=== PATIENT | female | born 1995 | race American Indian/Alaskan Native ===

== ENCOUNTER 2017-06-06 12:39 | Emergency (ER) | payer SELFPAY ==
[2017-06-06 13:17] VITALS: BP 114/70
--- NOTE | 2017-06-06 13:25 | Emergency Department Report ---
Chief Complaint: Urogenital-Female Stated Complaint: PREG,ABDOMINAL PAIN - HPI History of Present Illness: This is a 21-year-old female that presents with pelvic cramping times one week. Patient stated she was just seen at *first and the symptoms but was not able to rule out tubal due to gestation age. Patient describes pain as cramping. Denies any vaginal bleeding, abdominal pain, nausea, vomiting, chest pain or shortness of breath. She also states she wants a STD check due to vaginal discharge described as yellow and has a tingling sensation upon urination. Patient denies any other symptoms. - Exam Vital Signs: Vital Signs 06/06/17 13:11 Temperature 99.9 F H Pulse Rate 95 H Respiratory 18 Rate Blood Pressure 114/70 O2 Sat by Pulse 98 Oximetry Physical Exam: GENERAL: The patient is a well-developed, well-nourished female in no apparent distress. Patient is alert and acting appropriately for age. Alert and oriented 3, no apparent distress, normal gait, atraumatic. ABDOMEN: Soft, nontender, and nondistended. Positive bowel sounds. No hepatosplenomegaly was noted. No guarding or rebound tenderness, negative epigastric bruit. Negative psoas sign, negative valladares sign, negative McBurneys sign. Negative CVA tenderness MSE screening note: Focused history and physical exam performed. Due to findings the following was ordered: 1- This initial assessment/diagnostic orders/clinical plan/ treatment(s) is/are subject to change based on pt's health status, clinical progression and re- assessment by fellow clinical providers in the ED. Further treatment and workup at subsequent clinical provers discretion. Patient/guardians urged not to elope from ED as their condition may be serious if not clinically assessed and managed. 2-CBC, BMP, type and screen, UA, wet prep, gonorrhea/chlamydia, quantitative serum 3-ultrasound/transvaginal ED Disposition for MSE Condition: Stable
[2017-06-06 13:48] LABS: Hematocrit 36.1 % (30.3-42.9); Hemoglobin 11.7 gm/dl (10.1-14.3); Mean Corpuscular HGB Conc 33 % (30-34); Mean Corpuscular Hemoglobin 29 pg (28-32); Mean Corpuscular Volume 89 fl (79-97); Platelet Count 287 K/mm3 (140-440); Red Blood Count 4.06 M/mm3 (3.65-5.03); Red Cell Distribution Width 14.7 % (13.2-15.2); White Blood Count 5.7 K/mm3 (4.5-11.0)
[2017-06-06 14:01] LABS: Anion Gap 15 mmol/L; BUN/Creatinine Ratio 23; Blood Urea Nitrogen 18 mg/dL (7-17); Calcium 8.7 mg/dL (8.4-10.2); Carbon Dioxide 25 mmol/L (22-30); Chloride 99.9 mmol/L (98-107); Glucose 74 mg/dL (65-100); Potassium 3.7 mmol/L (3.6-5.0); Sodium 136 mmol/L (137-145)
[2017-06-06 15:33] LABS: Bilirubin,Urine NEG (Negative); Blood,Urine NEG (Negative); Ketones,Urine NEG (Negative); Leukocyte Esterase,Urine NEG (Negative); Nitrite,Urine NEG (Negative); Protein,Urine <15 mg/dL mg/dL (Negative); Urobilinogen,Urine < 2.0 mg/dL (<2.0)
[2017-06-06 15:39] LABS: WBC,Urine < 1.0 /HPF (0.0-6.0)
--- NOTE | 2017-06-06 17:10 | Ultrasound Report ---
FINAL REPORT PROCEDURE: US OB LESS THAN 14 WEEKS TECHNIQUE: Real-time transabdominal and transvaginal sonography of the uterus, placenta, amniotic fluid, adnexa, and fetus was performed with image documentation. Measurements were obtained to determine age/size. M-mode Doppler was used to document heartbeat. CPT 42358 and 18631 HISTORY: Rule out tubal. Pelvic pain. COMPARISON: No prior studies are available for comparison. FINDINGS: CRL: No pole identified. Yolk Sac: Normal. Embryonic Cardiac Activity: No cardiac activity detected. Gestational Sac: Mean sac diameter 10.6 mm, 5 weeks 6 days. Amniotic fluid: Normal. Cervix: Normal. Uterus: 8.9 x 4.3 x 6.2 cm. Right Ovary: 3.9 x 1.4 x 3.6 cm. Normal flow. Left Ovary: 3.7 x 2.4 x 2.4 cm. Normal flow. Estimated delivery date: 01/31/2018. Uterus and adnexa: Normal. IMPRESSION: Probable small intrauterine gestational sac with yolk sac. No pole or cardiac activity detected at this time. By measurements this corresponds to 5 weeks 6 days with EDC of 01/31/2018. Consider this could represent very early intrauterine without pole or cardiac activity detected. Ovary/adnexa unremarkable, ectopic felt to be very unlikely. Recommend clinical correlation, correlation with beta HCG, and short-term followup pelvic ultrasound.
--- NOTE | 2017-06-06 17:13 | Ultrasound Report ---
FINAL REPORT PROCEDURE: US OB LESS THAN 14 WEEKS TECHNIQUE: Real-time transabdominal and transvaginal sonography of the uterus, placenta, amniotic fluid, adnexa, and fetus was performed with image documentation. Measurements were obtained to determine age/size. M-mode Doppler was used to document heartbeat. CPT 79929 and 79090 HISTORY: Rule out tubal. Pelvic pain. COMPARISON: No prior studies are available for comparison. FINDINGS: CRL: No pole identified. Yolk Sac: Normal. Embryonic Cardiac Activity: No cardiac activity detected. Gestational Sac: Mean sac diameter 10.6 mm, 5 weeks 6 days. Amniotic fluid: Normal. Cervix: Normal. Uterus: 8.9 x 4.3 x 6.2 cm. Right Ovary: 3.9 x 1.4 x 3.6 cm. Normal flow. Left Ovary: 3.7 x 2.4 x 2.4 cm. Normal flow. Estimated delivery date: 01/31/2018. Uterus and adnexa: Normal. IMPRESSION: Probable small intrauterine gestational sac with yolk sac. No pole or cardiac activity detected at this time. By measurements this corresponds to 5 weeks 6 days with EDC of 01/31/2018. Consider this could represent very early intrauterine without pole or cardiac activity detected. Ovary/adnexa unremarkable, ectopic felt to be very unlikely. Recommend clinical correlation, correlation with beta HCG, and short-term followup pelvic ultrasound.
== END 2017-06-06 17:50 | disposition left against medical advice (07) ==
LOC: ED 12:39
DX: R10.9 Unspecified abdominal pain (principal); Z53.21 Procedure and treatment not carried out due to patient leaving prior to being seen by health care provider
CPT/HCPCS: 36415; 76801; 76817; 80048; 81001; 84702; 85027; 86850; 86900; 86901

== ENCOUNTER 2017-07-09 09:31 | Emergency (ER) | payer MEDICAID, OTHER ==
[2017-07-09 09:42] VITALS: BP 118/77
[2017-07-09 10:23] LABS: Bilirubin,Urine NEG (Negative); Blood,Urine NEG (Negative); Ketones,Urine NEG (Negative); Leukocyte Esterase,Urine SM (Negative); Mucus,Urine FEW /HPF; Nitrite,Urine NEG (Negative); Protein,Urine <15 mg/dL mg/dL (Negative); Urobilinogen,Urine < 2.0 mg/dL (<2.0)
[2017-07-09] MEDS ORDERED: ROCEPHIN IM ONE (11:55)
[2017-07-09] MEDS ORDERED: ZITHROMAX PO ONE (11:55)
[2017-07-09] MEDS ORDERED: XYLOCAINE 1% MPF 5 mL INFILTRATI ONE (11:55)
--- NOTE | 2017-07-09 12:03 | Emergency Department Report ---
ED Female HPI - General Chief complaint: Urogenital-Female Stated complaint: VAG DISCHARGE AND IRRITATION Time Seen by Provider: 07/09/17 10:51 Source: patient Mode of arrival: Ambulatory Limitations: No Limitations - History of Present Illness Initial comments: This is a 22-year-old female nontoxic, well nourished in appearance, no acute signs of distress presents to the ED with c/o of vaginal discharge times one month. Patient stated she is currently 10 weeks with no vaginal bleeding, vaginal pain. Patient states she is concerned about STD because her partner called her with a positive gonorrhea. We discussed that he'll discharge as yellow color with foul order. Patient denies any bowel pain, pelvic pain, vaginal bleeding, chest pain, shortness of breath, dysuria, polyuria, hematuria, back pain. Patient denies any allergies or past medical history. MD Complaint: vaginal discharge -: month(s) (1) Severity: mild Consistency: constant Improves with: none Worsens with: none Are you Now?: Yes Last Menstrual Period: 03/24/17 EDC: 12/29/17 Associated Symptoms: vaginal discharge. denies: vaginal bleeding, abdominal pain, nausea/vomiting, fever/chills, headaches, loss of appetite, dysuria, hematuria, rash, seizure, shortness of breath, syncope, weakness - Related Data Previous Rx's Medication Instructions Recorded Last Taken Type metroNIDAZOLE [Flagyl] 500 mg PO Q12HR #14 tab 07/09/17 Unknown Rx Allergies Allergy/AdvReac Type Severity Reaction Status Date / Time No Known Allergies Allergy Unverified 06/06/17 13:17 ED Review of Systems ROS: Stated complaint: VAG DISCHARGE AND IRRITATION Other details as noted in HPI Constitutional: denies: chills, fever Eyes: denies: eye pain, eye discharge, vision change ENT: denies: ear pain, throat pain Respiratory: denies: cough, shortness of breath, wheezing Cardiovascular: denies: chest pain, palpitations Endocrine: no symptoms reported Gastrointestinal: denies: abdominal pain, nausea, diarrhea Genitourinary: discharge. denies: urgency, dysuria Musculoskeletal: denies: back pain, joint swelling, arthralgia Skin: denies: rash, lesions Neurological: denies: headache, weakness, paresthesias Psychiatric: denies: anxiety, depression Hematological/Lymphatic: denies: easy bleeding, easy bruising ED Past Medical Hx - Past Medical History Previous Medical History?: No - Surgical History Past Surgical History?: No - Social History Smoking Status: Current Every Day Smoker Substance Use Type: Marijuana, Prescribed - Medications Home Medications: Home Medications Medication Instructions Recorded Confirmed Last Taken Type metroNIDAZOLE [Flagyl] 500 mg PO Q12HR #14 tab 07/09/17 Unknown Rx ED Physical Exam - General Limitations: No Limitations General appearance: alert, in no apparent distress - Head Head exam: Present: atraumatic, normocephalic - Eye Eye exam: Present: normal appearance, PERRL, EOMI. Absent: scleral icterus, conjunctival injection, nystagmus, periorbital swelling, periorbital tenderness Pupils: Present: normal accommodation - ENT ENT exam: Present: normal exam, normal orophraynx, mucous membranes moist, TM's normal bilaterally, normal external ear exam - Neck Neck exam: Present: normal inspection, full ROM. Absent: tenderness, meningismus, lymphadenopathy, thyromegaly - Respiratory Respiratory exam: Present: normal lung sounds bilaterally. Absent: respiratory distress, wheezes, rales, rhonchi, stridor, chest wall tenderness, accessory muscle use, decreased breath sounds, prolonged expiratory - Cardiovascular Cardiovascular Exam: Present: regular rate, normal rhythm, normal heart sounds. Absent: bradycardia, tachycardia, irregular rhythm, systolic murmur, diastolic murmur, rubs, gallop - GI/Abdominal GI/Abdominal exam: Present: soft, normal bowel sounds. Absent: distended, tenderness, guarding, rebound, rigid, diminished bowel sounds - Rectal Rectal exam: Present: deferred - External exam: Present: normal external exam, other (chaperoned Quanneka present during exam). Absent: erythema, swelling, lesions, lacerations, ecchymosis, bleeding Speculum exam: Present: normal speculum exam, cervical discharge, other (OS closed. chaperoned Quanneka present during exam). Absent: erythema, vaginal discharge, vaginal bleeding, foreign body, tissue, laceration Bi-manual exam: Present: normal bi-manual exam, other (chaperoned Quanneka present during exam). Absent: cervical motion tendernes, adnexal tenderness, adnexal mass, uterine enlargement, uterine tenderness - Extremities Exam Extremities exam: Present: normal inspection, full ROM, normal capillary refill. Absent: tenderness, pedal edema, joint swelling, calf tenderness - Back Exam Back exam: Present: normal inspection, full ROM. Absent: tenderness, CVA tenderness (R), CVA tenderness (L), muscle spasm, paraspinal tenderness, vertebral tenderness, rash noted - Neurological Exam Neurological exam: Present: alert, oriented X3, CN II-XII intact, normal gait, reflexes normal - Psychiatric Psychiatric exam: Present: normal affect, normal mood - Skin Skin exam: Present: warm, dry, intact, normal color. Absent: rash ED Course Vital Signs 07/09/17 09:37 Temperature 98.6 F Pulse Rate 81 Respiratory 19 Rate Blood Pressure 118/77 O2 Sat by Pulse 99 Oximetry - Reevaluation(s) Reevaluation #1: 07/09/17 12:08 Patient is speaking in full sentences with no signs of distress noted. ED Medical Decision Making - Medical Decision Making This is a 22-year-old female that presents with possible STD exposure and bacterial vaginosis. Patient is stable and was examined by me. Wet prep obtained. UA obtained within normal limits. HCG gerardo obtained. GC obtained and pending. Patient stated she wants to be treated empircally with rocephin and azithromycin. Patient was instructed to return in 3 days to obtain results of gonorrhea and chlamydia. Patient was instructed Follow-up with a primary care doctor in 3-5 days or if symptoms worsen and continue return to emergency room as soon as possible. At time time of discharge, the patient does not seem toxic or ill in appearance. No acute signs of distress noted. Patient agrees to discharge treatment plan of care. No further questions noted by the patient. Critical care attestation.: If time is entered above; I have spent that time in minutes in the direct care of this critically ill patient, excluding procedure time. ED Disposition Clinical Impression: Possible exposure to STD, Bacterial vaginosis Disposition: - TO HOME OR SELFCARE Is pt being admited?: No Does the pt Need Aspirin: No Condition: Stable Instructions: Safe Sex (ED), Bacterial Vaginosis (ED), Metronidazole (By mouth) Additional Instructions: Do Not consume any alcohol while taking Flagyl Follow-up with a primary care doctor in 3-5 days or if symptoms worsen and continue return to emergency room as soon as possible. Return in 3 days to obtain results of gonorrhea and chlamydia Prescriptions: metroNIDAZOLE [Flagyl] 500 mg PO Q12HR #14 tab Referrals: DENNY ABDALLA MD [Primary Care Provider] - 3-5 Days ALEXANDER MADRID MD [Staff Physician] - 3-5 Days MANUEL ORO MD [Staff Physician] - 3-5 Days [facility] [place] [facility] [place] - 3-5 Days [facility] [Outside] - 3-5 Days Forms: Work/School Release Form(ED), STI Treatment and Prevention
== END 2017-07-09 13:29 | disposition home or self-care (01) ==
LOC: ED 09:31
DX: O23.591 Infection of other part of genital tract in pregnancy, first trimester (principal); O99.331 Smoking (tobacco) complicating pregnancy, first trimester; O99.321 Drug use complicating pregnancy, first trimester; Z3A.10 10 weeks gestation of pregnancy; N76.0 Acute vaginitis
CPT/HCPCS: 36415; 81001; 84702; 87210; 87591; 96372; 99284; J0696

== ENCOUNTER 2017-08-12 08:54 | Emergency (ER) | payer MEDICAID ==
[2017-08-12 09:14] VITALS: BP 121/69
[2017-08-12 10:41] LABS: Basophils % (Auto) 0.3 % (0.0-1.8); Eosinophils # (Auto) 0.1 K/mm3 (0.0-0.4); Eosinophils % (Auto) 1.1 % (0.0-4.3); Hemoglobin 12.2 gm/dl (10.1-14.3); Lymphocytes # (Auto) 1.2 K/mm3 (1.2-5.4); Lymphocytes % (Auto) 26.4 % (13.4-35.0); Mean Corpuscular HGB Conc 32 % (30-34); Mean Corpuscular Hemoglobin 29 pg (28-32); Mean Corpuscular Volume 90 fl (79-97); Monocytes # (Auto) 0.6 K/mm3 (0.0-0.8); Monocytes % (Auto) 12.9 % (0.0-7.3); Platelet Count 274 K/mm3 (140-440); Red Blood Count 4.21 M/mm3 (3.65-5.03); Red Cell Distribution Width 15.1 % (13.2-15.2)
== END 2017-08-12 10:09 | disposition left against medical advice (07) ==
LOC: ED 08:54
DX: O26.852 Spotting complicating pregnancy, second trimester (principal); Z53.21 Procedure and treatment not carried out due to patient leaving prior to being seen by health care provider
CPT/HCPCS: 36415; 84702; 85025; 86850; 86900; 86901

== ENCOUNTER 2017-12-26 02:18 | Outpatient (CLI) | payer MEDICAID ==
[2017-12-26 02:39] VITALS: BP 119/71
[2017-12-26] MEDS ORDERED: LACTATED RINGERS 1,000 ML IV ONE (03:06)
== END 2017-12-26 03:21 | disposition left against medical advice (07) ==
LOC: TRG 02:18
PROVIDERS: ATTEND Obstetrics & Gynecology
DX: O26.893 Other specified pregnancy related conditions, third trimester (principal); R10.9 Unspecified abdominal pain; Z87.891 Personal history of nicotine dependence; Z3A.35 35 weeks gestation of pregnancy
CPT/HCPCS: 59025; J7120

== ENCOUNTER 2018-01-20 02:20 | Outpatient (CLI) | payer MEDICAID ==
[2018-01-20 02:55] VITALS: BP 118/74
== END 2018-01-20 03:36 | disposition home or self-care (01) ==
LOC: TRG 02:20
PROVIDERS: ATTEND Obstetrics & Gynecology
DX: O62.9 Abnormality of forces of labor, unspecified (principal); O46.93 Antepartum hemorrhage, unspecified, third trimester; Z3A.39 39 weeks gestation of pregnancy
CPT/HCPCS: 59025

== ENCOUNTER 2018-11-06 09:04 | Emergency (ER) | payer MEDICAID ==
[2018-11-06 09:09] VITALS: BP 120/73
[2018-11-06] MEDS ORDERED: FLEXERIL PO ONE (11:03)
[2018-11-06] MEDS ORDERED: TORADOL IM ONE (11:03)
--- NOTE | 2018-11-06 11:07 | Emergency Department Report ---
HPI - General Chief Complaint: Back Pain/Injury Time Seen by Provider: 11/06/18 10:52 - HPI HPI: 23-year-old female presents to the emergency department with complaint of low back pain that has been going on since this morning after she and her boyfriend were "playing around." She has not taken anything for her symptoms prior to presentation. The pain is spasmodic and intermittent. She denies any problems with bowel or bladder, numbness or paresthesias or any neurological deficits. Patient came in by ambulance and did not receive anything for her symptoms prior to arrival. No past medical history. ED Past Medical Hx - Past Medical History Previous Medical History?: No Hx Hypertension: No Hx Diabetes: No Hx Deep Vein Thrombosis: No Hx Renal Disease: No Hx Sickle Cell Disease: No Hx Seizures: No Hx Asthma: No Hx HIV: No - Surgical History Past Surgical History?: No - Social History Smoking Status: Current Every Day Smoker Substance Use Type: None - Medications Home Medications: Home Medications Medication Instructions Recorded Confirmed Last Taken Type metroNIDAZOLE [Flagyl] 500 mg PO Q12HR #14 tab 07/09/17 Unknown Rx Cyclobenzaprine [Flexeril] 10 mg PO TID PRN #12 tablet 11/06/18 Unknown Rx Ibuprofen 800 mg PO Q8H PRN #20 tablet 11/06/18 Unknown Rx ED Review of Systems ROS: Stated complaint: BACK PAIN Other details as noted in HPI Comment: All other systems reviewed and negative Constitutional: denies: chills, fever Eyes: denies: eye pain, vision change ENT: denies: ear pain, throat pain Respiratory: denies: cough, shortness of breath Cardiovascular: denies: chest pain, palpitations Gastrointestinal: denies: abdominal pain, vomiting Genitourinary: denies: dysuria, discharge Musculoskeletal: back pain. denies: arthralgia Skin: denies: rash, lesions Neurological: denies: headache, weakness, numbness, paresthesias Physical Exam - Physical Exam Vital Signs: Vital Signs 11/06/18 09:08 Temperature 98.2 F Pulse Rate 80 Respiratory 20 Rate Blood Pressure 120/73 O2 Sat by Pulse 100 Oximetry Physical Exam: GENERAL: The patient is well-developed well-nourished. HEENT: Normocephalic. Atraumatic. Patient has moist mucous membranes. EYES: Extraocular motions are intact. NECK: Supple. Trachea is midline. CHEST/LUNGS: Clear to auscultation. There is no respiratory distress noted. HEART/CARDIOVASCULAR: Regular. There is no tachycardia. There is no obvious murmur. ABDOMEN: Abdomen is soft, nontender. Patient has normal bowel sounds. There is no abdominal distention. SKIN: Skin is warm and dry. NEURO: The patient is awake, alert, and oriented. The patient is cooperative. The patient has no focal neurologic deficits. The patient has normal speech. MUSCULOSKELETAL: There is no tenderness or deformity. There is no limitation range of motion. There is no evidence of acute injury. BACK: There is some reproducible lower lumbar midline and bilateral paraspinal tenderness to palpation. The patient also appears to have some intermittent spasms in this area. ED Course Vital Signs 11/06/18 09:08 Temperature 98.2 F Pulse Rate 80 Respiratory 20 Rate Blood Pressure 120/73 O2 Sat by Pulse 100 Oximetry ED Medical Decision Making - Medical Decision Making Patient presents with some low back pain that started after she was playing around with her boyfriend prior to arrival. She has some mild tenderness to palpation to the midline and bilateral paraspinal lumbar back but no obvious deformity. She denies any problems with bowel or bladder, numbness or paresthesias or any neurological deficits. The patient was able to move around within the room and was seen moving from chair to chair. She appears low suspicion for any of the emergent back conditions such as cauda equina, epidural abscess or cord compression syndrome. Patient was given a dose of anti-inflammatories with a muscle relaxer with some improvement. She has been given a prescription for these medications as well as a referral for orthopedic/spine physicians. She will return to the ER with any worsening of her symptoms or any acute distress. - Differential Diagnosis lumbar strain/sprain, contusion, muscle spasm Critical Care Time: No Critical care attestation.: If time is entered above; I have spent that time in minutes in the direct care of this critically ill patient, excluding procedure time. ED Disposition Clinical Impression: Low back pain Qualifiers: Chronicity: acute Back pain laterality: bilateral Sciatica presence: without sciatica Qualified Code(s): M54.5 - Low back pain Disposition: - TO HOME OR SELFCARE Is pt being admited?: No Condition: Stable Instructions: Acute Low Back Pain (ED) Additional Instructions: Please follow up with a primary care physician in the next few days. I amgiving you a referral for a local orthopedic group, to follow up regarding your low back pain. Return to the emergency Department with any worsening of your symptoms, inability to urinate, development of numbness, or with any acute distress. You have been prescribed a medication that can be sedating. Therefore, this medication cannot be taken prior to driving, working, being responsible for children, and cannot be mixed with alcohol of any quantity. Prescriptions: Cyclobenzaprine [Flexeril] 10 mg PO TID PRN #12 tablet PRN Reason: Muscle Spasm Ibuprofen 800 mg PO Q8H PRN #20 tablet PRN Reason: Pain , Severe (7-10) Referrals: GINA PEREZ [Primary Care Provider] - 2-3 Days [facility] [Provider Group] - 2-3 Days Time of Disposition: 11:07
== END 2018-11-06 11:55 | disposition home or self-care (01) ==
LOC: ED 09:04
DX: M54.5 Low back pain (principal); F17.200 Nicotine dependence, unspecified, uncomplicated
CPT/HCPCS: 96372; 99283; J1885

== ENCOUNTER 2018-11-16 02:20 | Inpatient (IN) | payer MEDICAID ==
[2018-11-16 02:52] LABS: Basophils % (Auto) 0.2 % (0.0-1.8); Eosinophils % (Auto) 0.2 % (0.0-4.3); Hematocrit 36.8 % (30.3-42.9); Hemoglobin 12.1 gm/dl (10.1-14.3); Lymphocytes # (Auto) 1.7 K/mm3 (1.2-5.4); Lymphocytes % (Auto) 17.1 % (13.4-35.0); Mean Corpuscular HGB Conc 33 % (30-34); Mean Corpuscular Volume 84 fl (79-97); Monocytes # (Auto) 0.6 K/mm3 (0.0-0.8); Monocytes % (Auto) 6.1 % (0.0-7.3); Platelet Count 344 K/mm3 (140-440); Red Blood Count 4.39 M/mm3 (3.65-5.03); Red Cell Distribution Width 14.2 % (13.2-15.2)
[2018-11-16 03:09] LABS: Bilirubin,Urine NEG (Negative); Blood,Urine NEG (Negative); Color,Urine Straw (Yellow); Protein,Urine <15 mg/dL mg/dL (Negative); Urobilinogen,Urine < 2.0 mg/dL (<2.0)
[2018-11-16 03:16] LABS: Alanine Aminotransferase 11 units/L (7-56); Albumin 4.1 g/dL (3.9-5); BUN/Creatinine Ratio 11; Blood Urea Nitrogen 8 mg/dL (7-17); Calcium 9.4 mg/dL (8.4-10.2); Hemolysis Index 3
[2018-11-16] MEDS ORDERED: NACL 0.9% 1000 ML 1,000 ML IV ONE (03:28)
[2018-11-16] MEDS ORDERED: ZOFRAN IV ONE ×2 (03:28→06:28)
[2018-11-16] MEDS ORDERED: PEPCID IV ONE (03:31)
[2018-11-16] MEDS ORDERED: BENTYL IM ONE (03:31)
--- NOTE | 2018-11-16 04:06 | Emergency Department Report ---
ED N/V/D HPI - General Chief complaint: Abdominal Pain Stated complaint: ABD PAIN Time Seen by Provider: 11/16/18 03:30 Source: patient Mode of arrival: Ambulatory Limitations: No Limitations - History of Present Illness Initial comments: Patient is a A0 23-year-old -[place] female with no past medical history presents to the ED, and of acute onset persistent severe diffuse lower abdominal pain was in the right lower quadrant with nausea and vomiting and diarrhea for the last 2 days. Patient states that she has not been able to keep anything down by mouth for the last 12 hours. Patient denies dysuria, urinary frequency and urgency, vaginal bleeding, dizziness, fever, chills, back pain, hematochezia, flank pain, vaginal discharge, chest pain or dyspnea MD complaint: nausea, vomiting, diarrhea, abdominal pain -: Gradual, days(s) (2) Description of Vomiting: food contents, bilious Description of Diarrhea: water Associated Abdominal Pain: Yes Location: diffuse, LLQ, RLQ Radiation: none Severity: severe Pain Scale: 8 Quality: cramping, aching, sharp Consistency: constant Improves with: rest Worsens with: none, bowel movement, vomiting, movement Context: possible food poisoning, sick contacts Associated Symptoms: myalgias, loss of appetite, malaise, nausea/vomiting. denies: fever/chills, headaches - Related Data Previous Rx's Medication Instructions Recorded Last Taken Type metroNIDAZOLE [Flagyl] 500 mg PO Q12HR #14 tab 07/09/17 Unknown Rx Cyclobenzaprine [Flexeril] 10 mg PO TID PRN #12 tablet 11/06/18 Unknown Rx Ibuprofen 800 mg PO Q8H PRN #20 tablet 11/06/18 Unknown Rx Allergies Allergy/AdvReac Type Severity Reaction Status Date / Time No Known Allergies Allergy Verified 12/26/17 03:09 ED Review of Systems ROS: Stated complaint: ABD PAIN Other details as noted in HPI Comment: All other systems reviewed and negative Constitutional: no symptoms reported, see HPI, malaise. denies: chills, fever Eyes: as per HPI. denies: eye pain, eye discharge, vision change ENT: as per HPI. denies: ear pain, throat pain, hearing loss, congestion Respiratory: no symptoms reported, see HPI. denies: cough, shortness of breath, SOB with exertion, SOB at rest Cardiovascular: as per HPI. denies: chest pain, palpitations, dyspnea on exertion, syncope, paroxysmal nocturnal dyspnea Endocrine: no symptoms reported, see HPI. denies: excessive sweating, flushing, intolerance to cold, increased urine, unexplained weight gain Gastrointestinal: as per HPI, abdominal pain, nausea, vomiting, diarrhea Genitourinary: as per HPI. denies: urgency, dysuria, hematuria Musculoskeletal: as per HPI, myalgia. denies: back pain, arthralgia Skin: as per HPI. denies: lesions, change in hair/nails, other Neurological: as per HPI, headache. denies: numbness, paresthesias, confusion, vertigo Psychiatric: as per HPI Hematological/Lymphatic: as per HPI ED Past Medical Hx - Past Medical History Previous Medical History?: No Hx Hypertension: No Hx Diabetes: No Hx Deep Vein Thrombosis: No Hx Renal Disease: No Hx Sickle Cell Disease: No Hx Seizures: No Hx Asthma: No Hx HIV: No - Surgical History Past Surgical History?: No - Social History Smoking Status: Current Every Day Smoker Substance Use Type: Marijuana - Medications Home Medications: Home Medications Medication Instructions Recorded Confirmed Last Taken Type metroNIDAZOLE [Flagyl] 500 mg PO Q12HR #14 tab 07/09/17 Unknown Rx Cyclobenzaprine [Flexeril] 10 mg PO TID PRN #12 tablet 11/06/18 Unknown Rx Ibuprofen 800 mg PO Q8H PRN #20 tablet 11/06/18 Unknown Rx ED Physical Exam - General Limitations: No Limitations General appearance: alert, in no apparent distress - Head Head exam: Present: normocephalic, normal inspection - Eye Eye exam: Present: normal appearance, PERRL, EOMI - ENT ENT exam: Present: normal exam, normal orophraynx, mucous membranes moist, TM's normal bilaterally, normal external ear exam - Neck Neck exam: Present: normal inspection. Absent: tenderness, lymphadenopathy - Respiratory Respiratory exam: Present: normal lung sounds bilaterally. Absent: respiratory distress, wheezes, chest wall tenderness, accessory muscle use, decreased breath sounds - Cardiovascular Cardiovascular Exam: Present: regular rate, normal rhythm, normal heart sounds - GI/Abdominal GI/Abdominal exam: Present: soft, tenderness (RLQ, guarding), guarding, normal bowel sounds. Absent: distended, rebound, hyperactive bowel sounds, hypoactive bowel sounds - Rectal Rectal exam: Present: deferred - Extremities Exam Extremities exam: Present: normal inspection, full ROM - Back Exam Back exam: Present: normal inspection, full ROM. Absent: CVA tenderness (R), CVA tenderness (L), muscle spasm - Neurological Exam Neurological exam: Present: alert, oriented X3, CN II-XII intact, normal gait, reflexes normal - Psychiatric Psychiatric exam: Present: normal affect - Skin Skin exam: Present: warm, dry, intact, normal color ED Course Vital Signs 11/16/18 11/16/18 02:24 04:00 Temperature 98.3 F Pulse Rate 86 Respiratory 14 18 Rate Blood Pressure 119/80 O2 Sat by Pulse 98 Oximetry - Reevaluation(s) Reevaluation #1: 11/16/18 05:30 On reevaluation, the patient's pain is moderately controlled with pain medication. Patient tolerating the abdomen and pelvis CT scan with contrast imaging report. Reevaluation #2: 11/16/18 05:45 The abdomen and pelvis CT scan with contrast report shows the patient has acute appendicitis without perforation or abscess. This report was relayed by the radiologist paper cone grader. The verbal report also coincides with the published report. These findings were discussed with the ED attending physician Dr. Espinal who advised that the General surgeon paper cone grader, Dr. Covington be paged and that this case discussed with her. He also advised that the Hospitalist physician paper cone grader be paged and the case discussed with her for her to admit the patient after discussing the case with the General Surgeon paper cone grader, Dr. Covington. 11/16/2018 05:55 I discussed the patient's case and the findings with the General surgeon paper cone grader Dr. Covington, who advised that they patient be maintained NPO and that the case be discussed with the hospitalist physician on-call to admit the patient. Dr. Covington shall see the patient upon admission to the hospital. 11/16/2018 06:05 I discussed the patient case with the hospitalist physician paper cone grader Dr. Pierre who advised that the patient be for admission in to get a bed. Given that it was passed their admission time, she advised that the bridging orders be completed for the patient to be admitted. 11/16/18 06:36 Admission orders complete ED Medical Decision Making - Lab Data Result diagrams: 11/16/18 02:35 11/16/18 02:35 - Radiology Data Radiology results: report reviewed, image reviewed - Medical Decision Making Patient is alert and oriented 3 and is not in any distress with stable vital signs. Labs were drawn and abdomen and pelvis CT scan with contrast also ordered. Patient was treated for pain in the ED and also given anti-emetics wi th normal saline 1 L IV bolus. Lab test results were reviewed and are all unremarkable including urinalysis. Abdomen pelvis CT scan with contrast shows acute appendicitis with no perforation or abscess. - Differential Diagnosis Abdominal pain, Gastroenteritis, Acute Appendicitis, acute PID Critical care attestation.: If time is entered above; I have spent that time in minutes in the direct care of this critically ill patient, excluding procedure time. ED Disposition Clinical Impression: Acute abdominal pain in right lower quadrant, Nausea and vomiting in adult Acute appendicitis Qualifiers: Acute appendicitis type: unspecified acute appendicitis type Qualified Code(s): K35.80 - Unspecified acute appendicitis Disposition: -09 OP ADMIT IP TO THIS HOSP Is pt being admited?: Yes Does the pt Need Aspirin: No Condition: Stable Instructions: Abdominal Pain (ED) Referrals: TIM MONAE MD [Primary Care Provider] - 3-5 Days Time of Disposition: 06:26 Print Language: GERMAN
[2018-11-16 04:28] LABS: HCG Qualitative,Urine Negative (Negative)
--- NOTE | 2018-11-16 05:51 | Cat Scan Report ---
PROCEDURE: CT ABDOMEN PELVIS W CON TECHNIQUE: Computerized axial tomography of the abdomen and pelvis was performed after the IV inject ion of iodinated nonionic contrast. CT DOSE LENGTH PRODUCT: 3322.7 mGycm HISTORY: PAIN COMPARISONS: None . FINDINGS: Visualized lower thorax: No significant abnormality. Liver: Normal size and attenuation. Spleen: Normal size and attenuation. Gallbladder and biliary system: Normal. Pancreas: Normal. Adrenals: Normal. Kidneys: Normal. GI tract: The appendix is inflamed and dilated. There are inflammatory changes of the surrounding fa t. There is reactive mesenteric adenopathy. There is no bowel perforation. There is no mesenteric abs cess. . Lymph nodes and mesentery: Normal. Vasculature: Normal.. Bladder: Normal. Reproductive organs: Uterus and ovaries are unremarkable.. Peritoneum: There is no ascites or free air.. Musculoskeletal structures: No significant abnormality. IMPRESSION: Acute appendicitis. There is no perforation or abscess. . ER physician was notified by telephone at 4:40 AM. This document is electronically signed by Joseph Amaya MD., Nov 16 2018 05:49:27 AM ET
[2018-11-16] MEDS ORDERED: MORPHINE IV ONE (06:28)
[2018-11-16] MEDS: NACL 0.9% 1000 ML 1,000 ML IV SCH ×2 (06:45→16:28)
[2018-11-16] MEDS: ZOSYN/NS 3.375GM/50ML 3.375 GM/50 ML BAG IV SCH ×3 (07:00→22:22)
--- NOTE | 2018-11-16 07:23 | History and Physical Report ---
History of Present Illness Date of examination: 11/16/18 Date of admission: Chief complaint: abdominal pain History of present illness: Patient is a A0 23-year-old -[place] female with no past medical history presents to the ED, with acute onset of persistent severe diffuse lower abdominal pain in the right lower quadrant with nausea, vomiting and diarrhea for the last 2 days. Patient also stated that she has not been able to keep anything down by mouth for the last 12 hours. Her symptom continue to get worse so came to ER for further evaluation. CT abdomen/pelvis in the ER showed acute appendicitis, GS consulted and patient is now getting admitted for further evaluation and management. Constitutional: + malaise. denies: chills, fever Eyes: denies: eye pain, eye discharge, vision change ENT: denies: ear pain, throat pain, hearing loss, congestion Respiratory: no symptoms reported, denies: cough, shortness of breath, SOB with exertion, SOB at rest Cardiovascular: denies: chest pain, palpitations, dyspnea on exertion, syncope, paroxysmal nocturnal dyspnea Endocrine: no symptoms reported, denies: excessive sweating, flushing, intolerance to cold, increased urine, unexplained weight gain Gastrointestinal: + abdominal pain, nausea, vomiting, diarrhea Genitourinary: denies: urgency, dysuria, hematuria Musculoskeletal: + myalgia. denies: back pain, arthralgia Skin: denies: lesions, change in hair/nails, other Neurological: + headache. denies: numbness, paresthesias, confusion, vertigo Psychiatric: cooperative Hematological/Lymphatic: no bruising, no gum bleeding, no gland swelling Medications and Allergies Allergies Allergy/AdvReac Type Severity Reaction Status Date / Time Iodine and Iodide Containing Allergy Itching Verified 11/16/18 08:46 Produc Home Medications Medication Instructions Recorded Confirmed Last Taken Type Cyclobenzaprine [Flexeril 10 MG 10 mg PO TID PRN #12 tablet 11/06/18 Unknown Rx TAB] Ibuprofen [Ibuprofen 800] 800 mg PO Q8H PRN #20 tablet 11/06/18 Unknown Rx oxyCODONE /ACETAMINOPHEN [Percocet 1 tab PO Q6H PRN #20 tab 11/16/18 Unknown Rx 5/325] Active Meds: Active Medications Piperacillin Sod/Tazobactam Sod (Zosyn/Ns 3.375gm/50ml) 3.375 gm in 50 mls @ 100 mls/hr IV Q8HR MAGALIS; Protocol Last Admin: 11/16/18 07:00 Dose: 100 mls/hr Documented by: Sodium Chloride (Nacl 0.9% 1000 Ml) 1,000 mls @ 75 mls/hr IV DIRECT MAGALIS Last Admin: 11/16/18 06:45 Dose: 75 mls/hr Documented by: Morphine Sulfate (Morphine) 2 mg IV Q4H PRN PRN Reason: Pain, Moderate (4-6) Exam - Constitutional Vitals: Temp Pulse Resp BP Pulse Ox 98.3 F 89 20 110/69 98 11/16/18 06:54 11/16/18 06:54 11/16/18 06:54 11/16/18 06:54 11/16/18 06:54 General appearance: Present: no acute distress, obese - EENT Eyes: Present: PERRL ENT: hearing intact, clear oral mucosa - Neck Neck: Present: supple, normal ROM - Respiratory Respiratory effort: normal Respiratory: bilateral: CTA - Cardiovascular Heart Sounds: Present: S1 & S2. Absent: rub, click - Extremities Extremities: pulses symmetrical, No edema Peripheral Pulses: within normal limits - Abdominal General gastrointestinal: Present: soft, tender (RLQ), non-distended, normal bowel sounds - Integumentary Integumentary: Present: clear, warm, dry - Musculoskeletal Musculoskeletal: gait normal, strength equal bilaterally - Psychiatric Psychiatric: appropriate mood/affect, intact judgment & insight - Neurologic Neurologic: CNII-XII intact, moves all extremities Results - Labs CBC & Chem 7: 11/16/18 02:35 11/16/18 02:35 Labs: Abnormal lab results 11/16/18 11/16/18 Range/Units 02:35 02:35 Seg Neutrophils % 76.4 H (40.0-70.0) % Sodium 136 L (137-145) mmol/L Glucose 112 H (65-100) mg/dL Assessment and Plan Acute appendicitis: - Ct abdomen pelvis showed Acute appendicitis. There is no perforation or abscess. 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
[2018-11-16] MEDS ORDERED: SUBLIMAZE ONE (09:29)
[2018-11-16] MEDS ORDERED: BLOXIVERZ ONE (09:29)
[2018-11-16] MEDS ORDERED: ROBINUL ONE (09:29)
[2018-11-16] MEDS ORDERED: XYLOCAINE MPF 2% ONE (09:29)
[2018-11-16] MEDS ORDERED: ZEMURON IV ONE (09:29)
[2018-11-16] MEDS ORDERED: DIPRIVAN 10 MG/ML IV ONE (09:30)
--- NOTE | 2018-11-16 10:33 | Anesthesia Consultation ---
Anesthesia Consult and Med Hx Date of service: 11/16/18 - Airway Anesthetic Teeth Evaluation: Good ROM Head & Neck: Adequate Mental/Hyoid Distance: Adequate Mallampati Class: Class II Intubation Access Assessment: Good - Pulmonary Exam CTA: Yes - Cardiac Exam Cardiac Exam: RRR - Pre-Operative Health Status ASA Pre-Surgery Classification: ASA3 Proposed Anesthetic Plan: General - Pulmonary Hx Asthma: No - Cardiovascular System Hx Hypertension: No - Central Nervous System Hx Seizures: No Hx Psychiatric Problems: No - Endocrine Hx Renal Disease: No Hx Hypothyroidism: No Hx Hyperthyroidism: No - Hematic Hx Anemia: No Hx Sickle Cell Disease: No - Other Systems Hx Alcohol Use: No
[2018-11-16] MEDS ORDERED: ZOFRAN IV PRN (10:34)
[2018-11-16] MEDS ORDERED: NARCAN 0.4 MG/1 ML IV PRN (10:34)
[2018-11-16] MEDS ORDERED: DILAUDID IV PRN (10:34)
[2018-11-16] MEDS ORDERED: SUBLIMAZE IV PRN (10:34)
--- NOTE | 2018-11-16 10:34 | Anesthesia Day of Surgery ---
Anesthesia Day of Surgery - Day of Surgery Patient Examined: Yes Patient H&P Reviewed: Yes Patient is NPO: Yes Beta Blockers: No Cardiac Clearance: No Pulmonary Clearance: No
[2018-11-16] MEDS ORDERED: XYLOCAINE 1% 20 mL ONE (10:41)
[2018-11-16] MEDS ORDERED: MARCAINE-EPI 0.5%-1:200,000 INFILTRATI ONE ×3 (10:42→11:30)
[2018-11-16] MEDS ORDERED: VERSED ONE (10:58)
--- NOTE | 2018-11-16 11:00 | Consultation ---
History of Present Illness Consult date: 11/16/18 Reason for consult: abdominal pain Chief complaint: abdominal pain - History of present illness History of present illness: 23 yo F with no PMHx presented to ER w/ c/o abdominal pain in the RLQ, nonradiat ing, severe x 3 days. She has never had pain like this before. No alleviating or exacerbating factors. No fevers, +chills. +nausea and retching, no vomiting. Past History Past Medical History: No medical history Past Surgical History: No surgical history Social history: no significant social history Family history: no significant family history Medications and Allergies Allergies Allergy/AdvReac Type Severity Reaction Status Date / Time Iodine and Iodide Containing Allergy Itching Verified 11/16/18 08:46 Produc Home Medications Medication Instructions Recorded Confirmed Last Taken Type metroNIDAZOLE [Flagyl] 500 mg PO Q12HR #14 tab 07/09/17 Unknown Rx Cyclobenzaprine [Flexeril] 10 mg PO TID PRN #12 tablet 11/06/18 Unknown Rx Ibuprofen 800 mg PO Q8H PRN #20 tablet 11/06/18 Unknown Rx Active Meds: Active Medications Fentanyl (Sublimaze) 50 mcg IV Q5MIN PRN PRN Reason: Pain , Severe (7-10) Stop: 11/16/18 18:00 Hydromorphone HCl (Dilaudid) 0.5 mg IV Q10MIN PRN PRN Reason: Pain , Severe (7-10) Piperacillin Sod/Tazobactam Sod (Zosyn/Ns 3.375gm/50ml) 3.375 gm in 50 mls @ 100 mls/hr IV Q8HR MAGALIS; Protocol Last Admin: 11/16/18 07:00 Dose: 100 mls/hr Documented by: Sodium Chloride (Nacl 0.9% 1000 Ml) 1,000 mls @ 75 mls/hr IV DIRECT MAGALIS Last Admin: 11/16/18 06:45 Dose: 75 mls/hr Documented by: Morphine Sulfate (Morphine) 2 mg IV Q4H PRN PRN Reason: Pain, Moderate (4-6) Naloxone HCl (Narcan 0.4 Mg/1 Ml) 0.1 mg IV Q2MIN PRN PRN Reason: Res Rate </= 8 or 02 SAT < 92% Ondansetron HCl (Zofran) 4 mg IV ONCE PRN PRN Reason: Nausea And Vomiting Review of Systems All systems: negative (10 pt ROS performed and negative except for that listed in HPI) Exam Vital Signs Temp Pulse Resp BP Pulse Ox 98.3 F 86 14 119/80 98 11/16/18 02:24 11/16/18 02:24 11/16/18 02:24 11/16/18 02:24 11/16/18 02:24 Narrative exam: Gen: AAOx3. NAD CV: s1, S2+ resp; even and unlabored Abd: soft, ND, + RLQ TTP. no r/r/g Ext: no c/c/e Results - Labs 11/16/18 02:35 11/16/18 02:35 Abnormal lab results 11/16/18 11/16/18 Range/Units 02:35 02:35 Seg Neutrophils % 76.4 H (40.0-70.0) % Sodium 136 L (137-145) mmol/L Glucose 112 H (65-100) mg/dL Diabetes panel 11/16/18 Range/Units 02:35 Sodium 136 L (137-145) mmol/L Potassium 4.2 (3.6-5.0) mmol/L Chloride 98.1 (98-107) mmol/L Carbon Dioxide 25 (22-30) mmol/L BUN 8 (7-17) mg/dL Creatinine 0.7 (0.7-1.2) mg/dL Glucose 112 H (65-100) mg/dL Calcium 9.4 (8.4-10.2) mg/dL AST 12 (5-40) units/L ALT 11 (7-56) units/L Alkaline Phosphatase 97 (35-129) units/L Total Protein 7.1 (6.3-8.2) g/dL Albumin 4.1 (3.9-5) g/dL Calcium panel 11/16/18 Range/Units 02:35 Calcium 9.4 (8.4-10.2) mg/dL Albumin 4.1 (3.9-5) g/dL Pituitary panel 11/16/18 Range/Units 02:35 Sodium 136 L (137-145) mmol/L Potassium 4.2 (3.6-5.0) mmol/L Chloride 98.1 (98-107) mmol/L Carbon Dioxide 25 (22-30) mmol/L BUN 8 (7-17) mg/dL Creatinine 0.7 (0.7-1.2) mg/dL Glucose 112 H (65-100) mg/dL Calcium 9.4 (8.4-10.2) mg/dL Adrenal panel 11/16/18 Range/Units 02:35 Sodium 136 L (137-145) mmol/L Potassium 4.2 (3.6-5.0) mmol/L Chloride 98.1 (98-107) mmol/L Carbon Dioxide 25 (22-30) mmol/L BUN 8 (7-17) mg/dL Creatinine 0.7 (0.7-1.2) mg/dL Glucose 112 H (65-100) mg/dL Calcium 9.4 (8.4-10.2) mg/dL Total Bilirubin 0.30 (0.1-1.2) mg/dL AST 12 (5-40) units/L ALT 11 (7-56) units/L Alkaline Phosphatase 97 (35-129) units/L Total Protein 7.1 (6.3-8.2) g/dL Albumin 4.1 (3.9-5) g/dL - Imaging CT scan - abdomen: report reviewed, image reviewed CT scan - pelvis: report reviewed, image reviewed Assessment and Plan 23 yo F with acute appendicitis Plan: 1. NPO 2. IVF 3. IV abx - zosyn 4. OR today for appendectomy, all risks, benefits, and alternatives to surgery discussed with patient and consent obtained 5. OOB/ambulate 6. prn pain and nausea control Thank you, please call with questions.
[2018-11-16] MEDS ORDERED: NACL 0.9% IR ONE ×2 (11:30→11:58)
[2018-11-16] MEDS ORDERED: XYLOCAINE 1% 20 mL INFILTRATI ONE ×2 (11:30)
[2018-11-16] MEDS ORDERED: TORADOL ONE (11:40)
[2018-11-16] MEDS ORDERED: DECADRON ONE (11:44)
[2018-11-16] MEDS ORDERED: LACTATED RINGERS 1,000 ML ONE (12:21)
[2018-11-16] MEDS: MORPHINE IV PRN ×2 (16:05→22:23)
[2018-11-16] MEDS: PERCOCET 5/325 PO PRN (17:10)
--- NOTE | 2018-11-16 17:33 | Discharge Summary ---
Providers - Providers Date of Admission: 11/16/18 06:33 Date of discharge: 11/17/18 Attending physician: VIRI SALAS 11/16/18 06:32 Consult to Physician [CONS] Urgent Comment: Paolo spoke with Dr. Amin @ [phone] Consulting Provider: CANDI AMIN Physician Instructions: Reason For Exam: acute appendicitis Primary care physician: TIM MONAE Hospitalization Condition: Stable Pertinent studies: CT abdomen/pelvis Hospital course: Patient is a A0 23-year-old -[place] female with no past medical history presents to the ED, with acute onset of persistent severe diffuse lower abdominal pain in the right lower quadrant with nausea, vomiting and diarrhea for the last 2 days. Patient also stated that she has not been able to keep anything down by mouth for the last 12 hours. Her symptom continue to get worse so came to ER for further evaluation. CT abdomen/pelvis in the ER showed acute appendicitis, GS consulted and patient was admitted for further evaluation and management. Discharge diagnosis and management: Acute appendicitis: - Ct abdomen pelvis showed Acute appendicitis. There is no perforation or abscess. 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 Absent: rub, click - Extremities Extremities: pulses symmetrical, No edema Peripheral Pulses: within normal limits - Abdominal General gastrointestinal: Present: soft, non-distended, normal bowel sounds - Integumentary Integumentary: Present: clear, warm, dry - Musculoskeletal Musculoskeletal: gait normal, strength equal bilaterally - Psychiatric Psychiatric: appropriate mood/affect, intact judgment & insight - Neurologic Neurologic: CNII-XII intact, moves all extremities - Constitutional Vitals: Temp Pulse Resp BP Pulse Ox 97.3 F L 68 18 103/70 98 11/16/18 16:21 11/16/18 16:20 11/16/18 16:21 11/16/18 16:21 11/16/18 16:20 Plan Activity: advance as tolerated, other (avoid heavy lifting) Diet: regular Follow up with: TIM MONAE MD [Primary Care Provider] - 3-5 Days CANDI AMIN DO [Staff Physician] - 14 Days Prescriptions: oxyCODONE /ACETAMINOPHEN [Percocet 5/325] 1 tab PO Q6H PRN #20 tab PRN Reason: Pain , Severe (7-10)
[2018-11-17] MEDS: PERCOCET 5/325 PO PRN ×2 (01:12→08:04)
[2018-11-17] MEDS: ZOSYN/NS 3.375GM/50ML 3.375 GM/50 ML BAG IV SCH (06:12)
[2018-11-17 08:28] VITALS: BP 118/75
--- NOTE | 2018-11-17 09:28 | Post Anesthesia Evaluation ---
- Post Anesthesia Evaluation Patient Participated: Yes Airway Patent: Yes Stable Respiratory Function: Yes Nausea/Vomiting: No Temp > 96.8F: Yes Pain Manageable: Yes Adequeate Hydration: Yes Anesthesia Complications: No
--- NOTE | 2018-11-17 11:37 | Event Note ---
Date: 11/16/18 patient was discharged today, but c/o abdominal pain not relieved by 2 percocet and requested to go home tomorrow morning. Will hold the discharge till morning.
--- NOTE | 2018-11-19 15:05 | Post Operative Note ---
Date of procedure: 11/16/18 Pre-op diagnosis: acute appendicitis Post-op diagnosis: same Findings: dilated, inflamed appendix. dictation: [id number] Procedure: laparoscopic appendectomy Anesthesia: GETA, local Surgeon: CANDI AMIN Estimated blood loss: minimal Pathology: list (appendix) Specimen disposition: to lab Condition: stable Disposition: PACU
--- NOTE | 2018-11-19 16:05 | Operative Report ---
PREOPERATIVE DIAGNOSIS: Acute appendicitis. POSTOPERATIVE DIAGNOSIS: Acute appendicitis. PROCEDURE PERFORMED: Laparoscopic appendectomy. SURGEON: Eliz Covington DO ANESTHESIA: General endotracheal anesthesia, local. FINDINGS: Dilated and inflamed, enlarged appendix without perforation. ESTIMATED BLOOD LOSS: Minimal. SPECIMEN: Appendix. DISPOSITION AND CONDITION: Stable to PACU. HISTORY OF PRESENT ILLNESS AND INDICATION: The patient is a 23-year-old female, who presented to the hospital with complaints of right lower quadrant abdominal pain x 3 days. She was found to have acute appendicitis on CT scan of the abdomen and pelvis and physical exam was consistent with acute appendicitis. All risks, benefits and alternatives to appendectomy were discussed with the patient and questions answered. Consent obtained. PROCEDURE IN DETAIL: The patient was identified in the preoperative area, taken back to the operating room, placed on the operating table in supine position. After anesthesia was induced, a Brownlee catheter was sterilely placed by the circulating nurse. The left arm was tucked and all bony prominences padded and the abdomen was prepped and draped in the usual sterile fashion. Timeout was performed. Local anesthetic was infiltrated into all skin incision sites. A 5 mm incision was made above the umbilicus through which a Veress needle was inserted. The Veress needle position was confirmed using saline drop test and the abdomen insufflated to 15 mmHg. The Veress needle was then removed and a 5 mm Optiview trocar was placed through this incision. The abdomen was inspected. There was no underlying injury to any of the abdominal structures. The patient was placed in Trendelenburg position and tilted to the left. The cecum was identified. An additional 12 mm left lower quadrant and a 5 mm suprapubic trocar were then placed under direct visualization. The cecum was grasped and retracted and the base of the appendix was visualized. The base of the appendix was retrocecal. I attempted to follow the appendix from the base to the tip. However, the mid and distal appendix was severely inflamed. I decided to make a window between the base of the appendix and the mesoappendix using a [place] dissector. The base of the appendix was transected using [place] flex 45 mm white load stapler. The mesentery was then followed from the base of the appendix and ligated using the Harmonic scalpel. Once the appendix could no longer be retracted the inflammatory adhesions from the small bowel mesentery to the appendix were very carefully dissected using a combination of blunt dissection and Harmonic scalpel. The Harmonic was used to ligate only tissue that could be seen through in order to avoid injury to any major blood vessels. By performing a slow and meticulous dissection, the mid and distal portion of the appendix was freed from the surrounding tissue and clearly identified. There was no injury to any of the surrounding structures. The remainder of the mesoappendix was ligated using the Harmonic scalpel. The appendix was then placed into an EndoCatch bag and the ligated mesoappendix and the staple line were examined and hemostasis was ensured. There was no leakage of bowel contents. The pelvis was inspected and there was some seropurulent fluid, which was suctioned out and the pelvis was irrigated. The right lower quadrant was irrigated until the irrigant returned clear. The patient was placed in the neutral position and the appendix was removed via the 12 mm port. The 12 mm port fascia was then closed with 0 Vicryl interrupted suture using [place] device. The remaining ports were removed under direct visualization and skin incisions once again infiltrated with local anesthetic. Skin was closed with 4-0 Monocryl subcuticular stitches and skin glue. At the end of the case, all sponge, instrument, sharp counts were correct x 2. The patient was awoken from anesthesia, Brownlee catheter removed and the patient extubated. She was taken to the PACU in stable condition. JOB# [id number] LOREE/LAZARUS CRYSTAL
== END 2018-11-17 10:58 | disposition home or self-care (01) | DRG 342 ==
LOC: ED 02:20 → 3B-SURG 06:33
PROVIDERS: ADMIT Internal Medicine; ATTEND Internal Medicine
PROC: 0DTJ4ZZ Resection of Appendix, Percutaneous Endoscopic Approach (ICD-10-PCS; principal; 2018-11-16)
DX: K35.80 Unspecified acute appendicitis (principal); E87.1 Hypo-osmolality and hyponatremia; F17.210 Nicotine dependence, cigarettes, uncomplicated; E66.01 Morbid (severe) obesity due to excess calories; Z68.38 Body mass index [BMI] 38.0-38.9, adult
CPT/HCPCS: 36415; 74177; 80053; 81001; 81025; 85025; 88304; 96372; 96374; 96375; 96376; G0378; A4217; J0500; J1100; J1885; J2250; J2270; J2405; J2543; J2704; J2710; J3010; J7030; J7120; Q9967

== ENCOUNTER 2019-05-06 08:22 | Emergency (ER) | payer MEDICAID ==
[2019-05-06 09:14] VITALS: BP 128/77
--- NOTE | 2019-05-06 09:53 | Emergency Department Report ---
ED General Adult HPI - General Chief complaint: Psych Stated complaint: MH/PROOF OF Time Seen by Provider: 05/06/19 09:05 Source: patient Mode of arrival: Ambulatory Limitations: No Limitations - History of Present Illness Initial comments: 23-year-old female presents to ED for confirmation of . Patient reports she has a history of depression also other mental health diagnoses that she does not remember the names of. When asked is she has ever been diagnosed with schizophrenia, bipolar disorder, PTSD, anxiety, patient states no, although patient reported to triage nurse a history of bipolar and schizophrenia. Patient reports she was previously on medication for depression, but currently is not. Patient states she is currently overwhelmed and anxious, however denies any SI, HI, or hallucinations. Patient states she took a test at home on yesterday which was positive. The patient is here for another test and also mental health evaluation. -: days(s) (1) Severity scale (0 -10): 0 Improves with: none Worsens with: none Treatments Prior to Arrival: none - Related Data Previous Rx's Medication Instructions Recorded Last Taken Type Cyclobenzaprine [Flexeril 10 MG 10 mg PO TID PRN #12 tablet 11/06/18 Unknown Rx TAB] Ibuprofen [Ibuprofen 800] 800 mg PO Q8H PRN #20 tablet 11/06/18 Unknown Rx oxyCODONE /ACETAMINOPHEN [Percocet 1 tab PO Q6H PRN #20 tab 11/16/18 Unknown Rx 5/325] Allergies Allergy/AdvReac Type Severity Reaction Status Date / Time Iodine and Iodide Containing Allergy Itching Verified 11/16/18 08:46 Produc ED Review of Systems ROS: Stated complaint: MH/PROOF OF Other details as noted in HPI Comment: All other systems reviewed and negative Gastrointestinal: denies: abdominal pain Psychiatric: anxiety. denies: auditory hallucinations, visual hallucinations, homicidal thoughts, suicidal thoughts ED Past Medical Hx - Past Medical History Previous Medical History?: Yes Hx Hypertension: No Hx Congestive Heart Failure: No Hx Diabetes: No Hx Deep Vein Thrombosis: No Hx Renal Disease: No Hx Sickle Cell Disease: No Hx Headaches / Migraines: Yes Hx Seizures: No Hx Asthma: No Hx COPD: No Hx HIV: No - Social History Smoking Status: Current Every Day Smoker Substance Use Type: Marijuana - Medications Home Medications: Home Medications Medication Instructions Recorded Confirmed Last Taken Type Cyclobenzaprine [Flexeril 10 MG 10 mg PO TID PRN #12 tablet 11/06/18 Unknown Rx TAB] Ibuprofen [Ibuprofen 800] 800 mg PO Q8H PRN #20 tablet 11/06/18 Unknown Rx oxyCODONE /ACETAMINOPHEN [Percocet 1 tab PO Q6H PRN #20 tab 11/16/18 Unknown Rx 5/325] ED Physical Exam - General Limitations: No Limitations General appearance: alert, in no apparent distress - Head Head exam: Present: atraumatic, normocephalic - Eye Eye exam: Present: normal appearance, EOMI - ENT ENT exam: Present: mucous membranes moist - Neck Neck exam: Present: normal inspection - Respiratory Respiratory exam: Present: normal lung sounds bilaterally. Absent: respiratory distress - Cardiovascular Cardiovascular Exam: Present: regular rate, normal rhythm - GI/Abdominal GI/Abdominal exam: Present: soft. Absent: distended, tenderness - Extremities Exam Extremities exam: Present: normal inspection - Neurological Exam Neurological exam: Present: alert, oriented X3 - Psychiatric Psychiatric exam: Present: anxious - Skin Skin exam: Present: warm, dry, intact, normal color ED Course Vital Signs 05/06/19 05/06/19 05/06/19 08:29 09:13 09:14 Temperature 99.0 F 99 F Pulse Rate 81 69 Respiratory 16 16 16 Rate Blood Pressure 129/89 Blood Pressure 128/77 [Left] O2 Sat by Pulse 98 96 96 Oximetry - Reevaluation(s) Reevaluation #1: 05/06/19 10:37 Pt states she would like to leave at this time. test still pending, has not been seen by mental health yet. Pt is A&O x 3. She is not a threat to herself or others. Pt has normal mental status and full decision-making capacity. Pt understands the risks of leaving AMA. Pt given outpt info for the [facility]. Critical care attestation.: If time is entered above; I have spent that time in minutes in the direct care of this critically ill patient, excluding procedure time. ED Disposition Clinical Impression: Encounter for test, Anxiety Disposition: DC-07 LEFT AGAINST MED ADVICE Is pt being admited?: No Condition: Stable Instructions: Anxiety (ED) Referrals: PRIMARY CARE, [Primary Care Provider] - 3-5 Days [facility] [Outside] - 3-5 Days Time of Disposition: 10:39
== END 2019-05-06 10:40 | disposition left against medical advice (07) ==
LOC: ED 08:22
DX: Z32.00 Encounter for pregnancy test, result unknown (principal); F41.9 Anxiety disorder, unspecified; F20.9 Schizophrenia, unspecified; F31.9 Bipolar disorder, unspecified; F43.10 Post-traumatic stress disorder, unspecified; G43.909 Migraine, unspecified, not intractable, without status migrainosus; F17.200 Nicotine dependence, unspecified, uncomplicated; F12.10 Cannabis abuse, uncomplicated; Z79.899 Other long term (current) drug therapy; Z91.041 Radiographic dye allergy status
CPT/HCPCS: 36415; 84702; 99283

== ENCOUNTER 2019-11-11 15:19 | Outpatient (CLI) | payer MEDICAID ==
[2019-11-11 15:37] VITALS: BP 115/60
== END 2019-11-11 16:41 | disposition home or self-care (01) ==
LOC: TRG 15:19 → APU 15:20 → TRG 16:41
PROVIDERS: ATTEND Obstetrics & Gynecology
DX: O36.8130 Decreased fetal movements, third trimester, not applicable or unspecified (principal); Z3A.33 33 weeks gestation of pregnancy
CPT/HCPCS: 59025